=== PATIENT | female | born 1990 | race Caucasian/White ===

== ENCOUNTER 2020-10-01 22:37 | Emergency (ER) | payer SELFPAY ==
[~2020-10-01] VITALS: Ht 165.1 cm; Wt 54.4 kg
[2020-10-01 22:45] VITALS: BP 109/59
[2020-10-02] MEDS ORDERED: KETOROLAC 30 MG/ML VIAL IM ONE (00:15)
[2020-10-02 00:26] VITALS: BP 109/59
[2020-10-02] MEDS ORDERED: HYDROcodone/APAP 5/325 MG 1 TAB TAB ONE (00:30)
[2020-10-02] MEDS ORDERED: HYDROcodone/APAP 5/325 MG 1 TAB TAB PO ONE (00:35)
[2020-10-02] MEDS ORDERED: HYDR-5080 PO (00:51)
[2020-10-02] MEDS ORDERED: LID5T TP (00:53)
[2020-10-02] MEDS ORDERED: MOT200 PO (00:53)
== END 2020-10-02 01:03 | disposition home or self-care (01) ==
LOC: MED 22:37
DX: M25.552 Pain in left hip (principal); F17.210 Nicotine dependence, cigarettes, uncomplicated; W19.XXXA Unspecified fall, initial encounter; Y93.89 Activity, other specified; Y92.89 Other specified places as the place of occurrence of the external cause; Y99.8 Other external cause status
CPT/HCPCS: 72170; 73502; 99284; J1885